=== PATIENT | female | born 1960 | race Caucasian/White ===

== ENCOUNTER 2016-10-06 08:24 | Emergency (ER) | payer OTHER ==
[~2016-10-06] VITALS: Ht 165.1 cm; Wt 54.4 kg
[~2016-10-06 08:24] MED LIST: ALBUTEROL0.09 MG/A2 INH; BIAXIN500 MG PO; COREG12.5 MG PO; HYDROCODONE BIT1 T11 PO; LISINOPRIL-HYDR1 TA3 PO; MEDROL DOSEPAK4 MG PO; NKHM; PREDNISONE20 MG PO; ROBITUSSIN AC 110 ML PO; VENTOLIN H0.09 MG/AC INH; VIBRAMYCIN100 MG PO; ZITHROMAX250 MG PO; ZYBAN150 M1 PO
[2016-10-06] MEDS ORDERED: ATIVAN1 MG PO (08:52)
== END 2016-10-06 09:11 | disposition home or self-care (01) ==
LOC: ED 08:24
DX: F41.0 Panic disorder [episodic paroxysmal anxiety] (principal); Z98.51 Tubal ligation status

== ENCOUNTER → 2016-10-17 | Outpatient (CLI) | payer OTHER ==
[~2016-10-17] MED LIST changes: +ATIVAN1 MG PO
== END | disposition home or self-care (01) ==
LOC: RAD 14:08
DX: J43.9 Emphysema, unspecified (principal); J20.9 Acute bronchitis, unspecified; Z87.891 Personal history of nicotine dependence; Z87.01 Personal history of pneumonia (recurrent)

== ENCOUNTER 2017-07-19 06:43 | Emergency (ER) | payer OTHER ==
[~2017-07-19] VITALS: Ht 154.9 cm; Wt 56.7 kg
[2017-07-19 07:11] LABS: BILIRUBIN NEGATIVE (NEGATIVE); BLOOD 2+ (NEGATIVE); CLARITY SL CLOUDY (CLEAR); COLOR YELLOW (YELLOW); GLUCOSE NEGATIVE (NEGATIVE); KETONE NEGATIVE (NEGATIVE); LEUKO ESTERASE NEGATIVE (NEGATIVE); NITRITE NEGATIVE (NEGATIVE); PH 5.5 (5.0-9.0); SPECIFIC GRAVITY 1.025 (1.005-1.030); UROBILINOGEN 0.2 E.U./dl (0.2-1.0)
[2017-07-19 07:22] LABS: RBC 21-30 rbc/hpf (0-2)
[2017-07-19 07:25] LABS: BACTERIA 1+; MUCOUS 1+
[2017-07-19 07:47] LABS: BASO % 0.2 % (0.0-1.0); EOS # 0.1 10*3/uL (0.0-0.4); EOS % 0.5 % (1.0-4.0); HEMATOCRIT 41.6 % (37.0-47.0); HEMOGLOBIN 14.3 g/dl (12.0-16.0); LYMPH # 1.6 10*3/uL (1.3-4.4); LYMPH % 12.7 % (27.0-41.0); MEAN CELL VOLUME 94.8 fl (81.0-99.0); MEAN CORPUSCULAR HGB 32.6 pg (27.0-31.0); MEAN CORPUSCULAR HGB CONC 34.4 g/dl (33.0-37.0); MEAN PLATELET VOLUME 8.9 fl (9.6-12.3); MONO # 0.8 10*3/uL (0.1-1.0); MONO % 6.2 % (3.0-9.0); NEUT # 10.2 10*3/uL (2.3-7.9); PLATELET COUNT AUTOMATED 210 10*3/uL (130-400); RED BLOOD COUNT 4.39 10*6/uL (4.10-5.10); RED CELL DISTRI WIDTH 12.8 % (0-14.5); WHITE BLOOD COUNT 12.8 10*3/uL (4.8-10.8)
[2017-07-19 08:06] LABS: ALBUMIN 3.4 gm/dl (3.1-4.5); ALKALINE PHOSPHATASE 69 U/L (45-117); BUN 13 mg/dl (7-24); CHLORIDE 104 mmol/L (98-107); CREATININE 0.89 mg/dL (0.55-1.02); LIPASE 174 U/L (73-393); POTASSIUM 3.7 mmol/L (3.5-5.1); SGOT/AST 27 IU/L (3-35); SGPT/ALT 41 U/L (12-78); SODIUM 138 mmol/L (136-145); TOTAL PROTEIN 6.6 gm/dL (6.4-8.2)
[2017-07-19] MEDS ORDERED: Motrin,Rufen800 MG PO (09:14)
[2017-07-19] MEDS ORDERED: ZOFRAN ODT4 MG SL (09:14)
[2017-07-19] MEDS ORDERED: NORCO 5-325 TA1 EACH PO (09:14)
[2017-07-19] MEDS ORDERED: FLOMAX0.4 MG PO (09:14)
== END 2017-07-19 09:22 | disposition home or self-care (01) ==
LOC: ED 06:43
PROVIDERS: Emergency Medicine
DX: N13.30 Unspecified hydronephrosis (principal); F17.200 Nicotine dependence, unspecified, uncomplicated; Z79.899 Other long term (current) drug therapy

== ENCOUNTER 2020-12-04 15:34 | Emergency (ER) | payer SELFPAY ==
[~2020-12-04] VITALS: Ht 157.4 cm; Wt 47.6 kg
[~2020-12-04 15:34] MED LIST changes: +FLOMAX0.4 MG PO; +Motrin,Rufen800 MG PO; +NORCO 5-325 TA1 EACH PO; +ZOFRAN ODT4 MG SL
[2020-12-04 16:07] LABS: BASO % 0.4 % (0.0-1.0); EOS # 0.2 10*3/uL (0.0-0.4); EOS % 2.7 % (1.0-4.0); HEMATOCRIT 44.2 % (37.0-47.0); LYMPH # 2.6 10*3/uL (1.3-4.4); LYMPH % 32.9 % (27.0-41.0); MEAN CELL VOLUME 98.9 fl (81.0-99.0); MEAN CORPUSCULAR HGB CONC 34.4 g/dl (33.0-37.0); MEAN PLATELET VOLUME 9.2 fl (9.6-12.3); MONO # 0.5 10*3/uL (0.1-1.0); MONO % 6.3 % (3.0-9.0); NEUT # 4.5 10*3/uL (2.3-7.9); NEUT % 57.6 % (47.0-73.0); PLATELET COUNT AUTOMATED 212 10*3/uL (130-400); RED BLOOD COUNT 4.47 10*6/uL (4.10-5.10); RED CELL DISTRI WIDTH 13.2 % (0-14.5); WHITE BLOOD COUNT 7.8 10*3/uL (4.8-10.8)
[2020-12-04 16:39] LABS: ALBUMIN 3.5 gm/dl (3.1-4.5); ALKALINE PHOSPHATASE 93 U/L (45-117); BUN 5 mg/dl (7-24); CHLORIDE 105 mmol/L (98-107); CREATININE 0.74 mg/dL (0.55-1.02); SGOT/AST 26 IU/L (3-35); SGPT/ALT 43 U/L (12-78); SODIUM 137 mmol/L (136-145)
[2020-12-04 16:45] LABS: TROPONIN I < 0.015 ng/ml (<0.045)
[2020-12-04] MEDS ORDERED: PREDNISONE20 M1 PO (20:04)
== END 2020-12-04 20:08 | disposition home or self-care (01) ==
LOC: ED 15:34
PROVIDERS: Emergency Medicine
DX: R22.2 Localized swelling, mass and lump, trunk (principal); N28.89 Other specified disorders of kidney and ureter; R07.89 Other chest pain; Z79.899 Other long term (current) drug therapy; Z98.890 Other specified postprocedural states

== ENCOUNTER 2021-07-18 19:29 | Emergency (ER) | payer OTHER ==
[~2021-07-18] VITALS: Ht 157.4 cm; Wt 49.9 kg
[~2021-07-18 19:29] MED LIST changes: +PREDNISONE20 M1 PO
[2021-07-18 21:35] LABS: BASO % 0.2 % (0.0-1.0); EOS # 0.3 10*3/uL (0.0-0.4); EOS % 3.3 % (1.0-4.0); HEMATOCRIT 44.5 % (37.0-47.0); LYMPH # 2.9 10*3/uL (1.3-4.4); LYMPH % 31.5 % (27.0-41.0); MEAN CELL VOLUME 97.2 fl (81.0-99.0); MEAN CORPUSCULAR HGB CONC 33.9 g/dl (33.0-37.0); MEAN PLATELET VOLUME 8.9 fl (9.6-12.3); MONO # 0.7 10*3/uL (0.1-1.0); MONO % 7.5 % (3.0-9.0); NEUT # 5.3 10*3/uL (2.3-7.9); NEUT % 57.3 % (47.0-73.0); PLATELET COUNT AUTOMATED 244 10*3/uL (130-400); RED BLOOD COUNT 4.58 10*6/uL (4.10-5.10); WHITE BLOOD COUNT 9.2 10*3/uL (4.8-10.8)
[2021-07-18 21:54] LABS: ALBUMIN 3.8 gm/dl (3.1-4.5); ALKALINE PHOSPHATASE 83 U/L (45-117); BUN 11 mg/dl (7-24); CHLORIDE 107 mmol/L (98-107); CREATININE 0.76 mg/dL (0.55-1.02); POTASSIUM 4.1 mmol/L (3.5-5.1); SGOT/AST 27 IU/L (3-35); SGPT/ALT 45 U/L (12-78); SODIUM 138 mmol/L (136-145); TOTAL PROTEIN 7.3 gm/dL (6.4-8.2)
== END 2021-07-19 02:00 | disposition home or self-care (01) ==
LOC: ED 19:29
PROVIDERS: Emergency Medicine
DX: G43.901 Migraine, unspecified, not intractable, with status migrainosus (principal)

== ENCOUNTER → 2021-11-27 | Outpatient (CLI) | payer OTHER | END | disposition home or self-care (01) | LOC: US 12:44 → MAMMO 14:00 | PROVIDERS: ATTEND Family Medicine | DX: Z12.31 Encounter for screening mammogram for malignant neoplasm of breast (principal); E04.2 Nontoxic multinodular goiter ==

== ENCOUNTER → 2022-01-30 | Outpatient (CLI) | payer OTHER | END | disposition home or self-care (01) | LOC: CARD 14:00 | PROVIDERS: ATTEND Internal Medicine Cardiovascular Disease | DX: I25.10 Atherosclerotic heart disease of native coronary artery without angina pectoris (principal); Z72.0 Tobacco use; R01.1 Cardiac murmur, unspecified; R06.00 Dyspnea, unspecified ==

== ENCOUNTER 2022-12-12 20:05 | Emergency (ER) | payer BC ==
[~2022-12-12] VITALS: Wt 47.2 kg
[2022-12-12 22:53] LABS: BASO % 0.3 % (0.0-1.0); EOS % 0.2 % (1.0-4.0); HEMATOCRIT 44.2 % (37.0-47.0); LYMPH # 1.7 10*3/uL (1.3-4.4); LYMPH % 14.4 % (27.0-41.0); MEAN CELL VOLUME 95.5 fl (81.0-99.0); MEAN CORPUSCULAR HGB 32.8 pg (27.0-31.0); MEAN CORPUSCULAR HGB CONC 34.4 g/dl (33.0-37.0); MEAN PLATELET VOLUME 8.9 fl (9.6-12.3); MONO # 0.8 10*3/uL (0.1-1.0); NEUT # 9.1 10*3/uL (2.3-7.9); NEUT % 77.9 % (47.0-73.0); PLATELET COUNT AUTOMATED 230 10*3/uL (130-400); RED BLOOD COUNT 4.63 10*6/uL (4.10-5.10); RED CELL DISTRI WIDTH 13.1 % (0-14.5); WHITE BLOOD COUNT 11.6 10*3/uL (4.8-10.8)
[2022-12-12 23:16] LABS: BILIRUBIN Negative (Negative); BLOOD Trace-Lysed (Negative); CLARITY Turbid (Clear); COLOR Yellow (Yellow); GLUCOSE Negative (Negative); KETONE Trace (Negative); LEUKO ESTERASE 3+ (Negative); NITRITE Negative (Negative); UROBILINOGEN 0.2 E.U./dl (0.0-1.0)
[2022-12-12 23:22] LABS: ALKALINE PHOSPHATASE 82 U/L (46-116); CHLORIDE 102 mmol/L (98-107); LIPASE 26 U/L (12-53); POTASSIUM 3.8 mmol/L (3.4-5.1); SGPT/ALT 36 U/L (10-49); TOTAL PROTEIN 6.2 gm/dL (6.0-8.0)
[2022-12-12 23:23] LABS: BUN < 5 mg/dl (9-23)
[2022-12-12 23:36] LABS: BACTERIA 1+; MUCOUS 1+; WBC 16-20 wbc/hpf (0-5)
== END 2022-12-13 03:54 | disposition home or self-care (01) ==
LOC: ED 20:05
PROVIDERS: Physician Assistant
DX: K59.00 Constipation, unspecified (principal); R91.1 Solitary pulmonary nodule; F41.9 Anxiety disorder, unspecified; F32.A Depression, unspecified; Z98.51 Tubal ligation status; Z79.899 Other long term (current) drug therapy

== ENCOUNTER → 2023-03-31 | Outpatient (CLI) | payer MEDICAID | END | disposition home or self-care (01) | LOC: RAD 14:50 | PROVIDERS: ATTEND Family Medicine | DX: J44.9 Chronic obstructive pulmonary disease, unspecified (principal); M94.0 Chondrocostal junction syndrome [Tietze] ==

== ENCOUNTER → 2023-04-22 | Outpatient (CLI) | payer MEDICAID ==
[~2023-04-22] MED LIST changes: +ANORO ELLIPTA1 EACH INH; +B12 ACTIVE1000 MCG PO; +LIPITOR10 MG PO; +MAGNESIUM250 M3 PO
== END | disposition home or self-care (01) ==
LOC: CARD 00:45
PROVIDERS: ATTEND Family Medicine
DX: R94.31 Abnormal electrocardiogram [ECG] [EKG] (principal)

== ENCOUNTER → 2023-04-27 | Outpatient (CLI) | payer MEDICAID | END | disposition home or self-care (01) | LOC: SDC 00:36 → EDSTATUS 11:00 → SDC 11:00 | PROVIDERS: ATTEND Family Medicine | DX: N63.32 Unspecified lump in axillary tail of the left breast (principal) ==

== ENCOUNTER → 2023-09-14 | Outpatient (CLI) | payer MEDICAID | END | disposition home or self-care (01) | LOC: ORTHO 10:10 | PROVIDERS: ATTEND Orthopaedic Surgery | DX: M65.331 Trigger finger, right middle finger (principal) ==

== ENCOUNTER → 2023-09-24 | Day surgery (SDC) | payer MEDICAID ==
[~2023-09-24] VITALS: Ht 154.9 cm; Wt 45.4 kg
[~2023-09-24] MED LIST changes: +BUPIVACAINE 0.5% 10 ML VIAL ONE; +Lidocaine Hydrochloride 5 ML AMP ONE; +TRELEGY ELLIPT1 EACH INH; +ceFAZolin sodium 1GM/10ML IV SCH; +ceFAZolin sodium/sodium chlor 10 ML IV ONE
[2023-09-24 07:51] VITALS: BP 159/94
[2023-09-24 08:00] VITALS: BP 154/92
[2023-09-24 08:05] VITALS: BP 158/95
[2023-09-24 08:10] VITALS: BP 165/73
[2023-09-24 08:15] VITALS: BP 167/97
== END | disposition home or self-care (01) ==
LOC: SDC 09-21 12:30
PROVIDERS: ATTEND Orthopaedic Surgery
DX: M65.331 Trigger finger, right middle finger (principal); M65.841 Other synovitis and tenosynovitis, right hand; I10 Essential (primary) hypertension; G43.909 Migraine, unspecified, not intractable, without status migrainosus; J44.9 Chronic obstructive pulmonary disease, unspecified; F32.A Depression, unspecified; F41.9 Anxiety disorder, unspecified; E78.00 Pure hypercholesterolemia, unspecified; F17.210 Nicotine dependence, cigarettes, uncomplicated; Z98.51 Tubal ligation status; M19.041 Primary osteoarthritis, right hand; Z98.890 Other specified postprocedural states; Z79.899 Other long term (current) drug therapy; Z91.010 Allergy to peanuts; Z80.9 Family history of malignant neoplasm, unspecified; Z82.49 Family history of ischemic heart disease and other diseases of the circulatory system

== ENCOUNTER → 2024-05-23 | Outpatient (CLI) | payer MEDICAID ==
[~2024-05-23] MED LIST changes: -BUPIVACAINE 0.5% 10 ML VIAL ONE; -Lidocaine Hydrochloride 5 ML AMP ONE; -ceFAZolin sodium 1GM/10ML IV SCH; -ceFAZolin sodium/sodium chlor 10 ML IV ONE
== END | disposition home or self-care (01) ==
LOC: RAD 14:38
PROVIDERS: ATTEND Family Medicine
DX: J44.9 Chronic obstructive pulmonary disease, unspecified (principal); J20.9 Acute bronchitis, unspecified; Q33.1 Accessory lobe of lung

== ENCOUNTER → 2024-08-29 | Outpatient (CLI) | payer MEDICAID | END | disposition home or self-care (01) | LOC: RAD 12:08 | PROVIDERS: ATTEND Internal Medicine | DX: R07.81 Pleurodynia (principal) ==

== ENCOUNTER 2024-12-02 11:31 | Emergency (ER) | payer MEDICAID ==
[~2024-12-02] VITALS: Ht 154.9 cm; Wt 47.6 kg
[2024-12-02] MEDS ORDERED: Albuterol Sulf/Ipratropium 3 ML VIAL NEB ONE (12:00)
[2024-12-02 12:21] LABS: BASO % 0.3 % (0.0-1.0); EOS # 0.1 10*3/uL (0.0-0.4); EOS % 0.8 % (1.0-4.0); HEMATOCRIT 41.4 % (37.0-47.0); MEAN CELL VOLUME 94.3 fl (81.0-99.0); MEAN CORPUSCULAR HGB 32.6 pg (27.0-31.0); MEAN CORPUSCULAR HGB CONC 34.5 g/dl (33.0-37.0); MEAN PLATELET VOLUME 8.7 fl (9.6-12.3); MONO # 0.8 10*3/uL (0.1-1.0); MONO % 11.9 % (3.0-9.0); NEUT # 4.5 10*3/uL (2.3-7.9); NEUT % 69.4 % (47.0-73.0); PLATELET COUNT AUTOMATED 203 10*3/uL (130-400); RED BLOOD COUNT 4.39 10*6/uL (4.10-5.10); RED CELL DISTRI WIDTH 12.9 % (0-14.5); WHITE BLOOD COUNT 6.5 10*3/uL (4.8-10.8)
[2024-12-02 12:40] LABS: BUN 9 mg/dl (9-23); CHLORIDE 99 mmol/L (98-107); POTASSIUM 3.4 mmol/L (3.4-5.1)
[2024-12-02] MEDS ORDERED: AZITHROMYCIN 250 MG TAB PO ONE (13:20)
[2024-12-02] MEDS ORDERED: methylPREDNISolone sod succ 125 MG VIAL IM ONE (13:20)
[2024-12-02] MEDS ORDERED: VENTOLIN 02.5 MG/3 M INH (13:21)
[2024-12-02] MEDS ORDERED: PREDNISONE20 M1 PO (13:21)
[2024-12-02] MEDS ORDERED: ZITHROMAX250 MG PO (13:21)
[2024-12-02] MEDS ORDERED: Water, Sterile 10 ML VIAL ONE (13:41)
== END 2024-12-02 13:34 | disposition home or self-care (01) ==
LOC: ED 11:31
PROVIDERS: Nurse Practitioner Family
DX: J44.1 Chronic obstructive pulmonary disease with (acute) exacerbation (principal); I10 Essential (primary) hypertension; E78.00 Pure hypercholesterolemia, unspecified; F32.A Depression, unspecified; F41.9 Anxiety disorder, unspecified; Z79.899 Other long term (current) drug therapy; Z98.51 Tubal ligation status; Z98.890 Other specified postprocedural states

== ENCOUNTER → 2024-12-05 | Outpatient (CLI) | payer MEDICAID ==
[~2024-12-05] MED LIST changes: +VENTOLIN 02.5 MG/3 M INH
== END | disposition home or self-care (01) ==
LOC: MAMMO 00:42
PROVIDERS: ATTEND Nurse Practitioner Women's Health
DX: Z12.31 Encounter for screening mammogram for malignant neoplasm of breast (principal); R92.323 Mammographic fibroglandular density, bilateral breasts

== ENCOUNTER → 2025-06-13 | Outpatient (CLI) | payer MEDICAID | END | disposition home or self-care (01) | LOC: CARD 00:38 | PROVIDERS: ATTEND Family Medicine | DX: I08.2 Rheumatic disorders of both aortic and tricuspid valves (principal); R06.00 Dyspnea, unspecified ==